=== PATIENT | female | born 1980 | race Caucasian/White ===

== ENCOUNTER 2017-10-22 07:51 | Emergency (ER) | payer OTHER ==
[~2017-10-22] VITALS: Ht 170.2 cm; Wt 84.9 kg
[~2017-10-22 07:51] MED LIST: DILA8TAB4 IV
[2017-10-22 07:55] VITALS: BP 135/85; PULSE 82; RESP 16; TEMP 98.7; O2SAT 100
[2017-10-22] MEDS ORDERED: SULFAMETHOXAZOLE-TRIMETHOPRIM DS 800-160 MG TAB PO ONE (08:30)
[2017-10-22] MEDS ORDERED: BACT800T5 PO (08:37)
--- NOTE | 2017-10-22 08:37 | PD ---
HPI Chief Complaint: Skin Problem Time Seen by Provider: 08:11 Travel History International Travel<30 days: No Contact w/Intl Traveler<30days: No Traveled to known affect area: No History of Present Illness HPI This 36-year-old female is complaining of an infection on her left leg. She has noted an area of swelling and tenderness over the lower leg. She admits to IV drug use but does not recall injecting at this particular site. She has also been working in the garden. PFSH Past Medical History Anxiety: Yes Depression: No Heart Rhythm Problems: No Cancer: No Cardiovascular Problems: No High Cholesterol: No Chest Pain: No Congestive Heart Failure: No Cerebrovascular Accident: No Diminished Hearing: No Endocrine: No Genitourinary: No Headaches: Yes Hypertension: No Immune Disorder: No Musculoskeletal: Yes (CHRONIC BACK PAIN) Neurologic: No Psychiatric: Yes Reproductive: No Respiratory: No Migraines: Yes Influenza Vaccination: No ?: Not LMP: TUBAL : 7 Para: 5 Miscarriage: 2 : 0 Tubal Ligation: Yes Past Surgical History Abdominal Surgery: No Cardiac Surgery: No Section: Yes (2009,2007 and 2005) Cholecystectomy: Yes Ear Surgery: No Endocrine Surgery: No Eye Surgery: No Genitourinary Surgery: No Gynecologic Surgery: Yes Oral Surgery: No Thoracic Surgery: No Social History Alcohol Use: Yes (on occasion) Tobacco Use: Yes ( MUCH I CAN) Substance Use: Yes (ALCOHOL, OPIATES, BENZOS, COCAINE, MARIJUANA) Allergies-Medications (Allergen,Severity, Reaction): Coded Allergies: vancomycin (Unverified Adverse Reaction, Intermediate, 10/22/17) burning throat/itching Reported Meds & Prescriptions Reported Meds & Active Scripts Active Reported Dilaudid 8 mg (Hydromorphone HCl) 8 Mg Tab 8 Mg IV DAILY Review of Systems General / Constitutional: No: Fever, Chills Respiratory: No: Cough Gastrointestinal: No: Vomiting, Diarrhea Genitourinary: No: Urgency, Frequency Skin: Positive Rash, Positive Lumps Psychiatric: Positive: Substance Abuse Endocrine: No: Heat Intolerance, Cold Intolerance Hematologic/Lymphatic: No: Easy Bruising Physical Exam Narrative GENERAL: [-] SKIN: Focused skin assessment warm/dry. HEAD: Atraumatic. Normocephalic. EYES: Pupils equal and round. No scleral icterus. No injection or drainage. ENT: No nasal bleeding or discharge. Mucous membranes pink and moist. NECK: Trachea midline. No JVD. CARDIOVASCULAR: Regular rate and rhythm. No murmur appreciated. RESPIRATORY: No accessory muscle use. Clear to auscultation. Breath sounds equal bilaterally. GASTROINTESTINAL: Abdomen soft, non-tender, nondistended. Hepatic and splenic margins not palpable. MUSCULOSKELETAL: No obvious deformities. No clubbing. No cyanosis. No edema. There is a pustular lesion about a centimeter in diameter overlying the midportion of the lower leg on the left side. NEUROLOGICAL: Awake and alert. No obvious cranial nerve deficits. Motor grossly within normal limits. Normal speech. PSYCHIATRIC: Appropriate mood and affect; insight and judgment normal. Data Data Last Documented VS Vital Signs Date Time Temp Pulse Resp B/P (MAP) Pulse Ox O2 Delivery O2 Flow Rate FiO2 10/22/17 07:55 98.7 82 16 135/85 (102) 100 Orders Orders Sulfamet-Trimeth Ds 800-160 Mg (Bactrim (10/22/17 08:30) Wound Culture And Gram Stain (10/22/17 08:32) Ibuprofen (Motrin) (10/22/17 08:45) MDM Medical Decision Making Medical Screen Exam Complete: Yes Emergency Medical Condition: Yes Medical Record Reviewed: Yes Differential Diagnosis Differential includes abscess, cellulitis Narrative Course I indeed confirms that this is an abscess. There is some surrounding erythema and she will be treated with Bactrim. Procedures Procedure Narrative Verbal consent was obtained. The pustular area was anesthetized with 1% lidocaine with adrenaline. The area was incised and a moderate amount of material was obtained. Culture has been sent. The area was packed with quarter inch Xeroform gauze. Patient tolerated the procedure well Diagnosis Primary Impression: Abscess of leg Additional Instructions: Remove packing in 2 days, return if fever increased swelling Scripts Sulfamethoxazole-Trimethoprim (Bactrim DS) 800-160 Mg Tab 1 TAB PO BID for Infection for 7 Days, #14 TAB 0 Refills Prov: Julian Britton MD 10/22/17 Disposition: 01 DISCHARGE HOME Condition: Stable Julian Britton MD Oct 22, 2017 08:37
[2017-10-22] MEDS ORDERED: IBUPROFEN 600 MG TAB PO ONE (08:45)
== END 2017-10-22 08:48 | disposition home or self-care (01) ==
LOC: PHED 07:51
DX: L02.416 Cutaneous abscess of left lower limb (principal); B95.62 Methicillin resistant Staphylococcus aureus infection as the cause of diseases classified elsewhere; F41.9 Anxiety disorder, unspecified; F17.200 Nicotine dependence, unspecified, uncomplicated; Z88.1 Allergy status to other antibiotic agents; Z79.899 Other long term (current) drug therapy
CPT/HCPCS: 10061; 86403; 87070; 87186

== ENCOUNTER 2017-11-18 23:34 | Emergency (ER) | payer OTHER ==
[~2017-11-18] VITALS: Ht 170.2 cm; Wt 81.0 kg
[~2017-11-18 23:34] MED LIST changes: +BACT800T5 PO; -DILA8TAB4 IV
[2017-11-18 23:44] VITALS: BP 127/76; PULSE 102; RESP 16; TEMP 99.6; O2SAT 97
[2017-11-19] MEDS ORDERED: SULFAMETHOXAZOLE-TRIMETHOPRIM DS 800-160 MG TAB PO ONE (01:30)
[2017-11-19] MEDS ORDERED: LIDOCAINE-PRILOCAIN 2.5% CREAM 5 GM TUBE TOPICAL ONE (01:30)
[2017-11-19] MEDS ORDERED: LIDOCAINE HCL 1% 20 ML VIAL INFIL ONE (01:30)
--- NOTE | 2017-11-19 02:32 | PD ---
HPI . Skin problem Chief Complaint: Skin Problem Time Seen by Provider: 01:12 Travel History International Travel<30 days: No Contact w/Intl Traveler<30days: No Traveled to known affect area: No History of Present Illness HPI 37-year-old female IV drug abuser with right anterior pretibial surface abscess and left thigh anterior probable infection. Patient has had multiple prior abscesses. Denies fever chills sweats. PFSH Past Medical History Narrative Medical Past medical history reviewed Anxiety: Yes Depression: No Heart Rhythm Problems: No Cancer: No Cardiovascular Problems: No High Cholesterol: No Chest Pain: No Congestive Heart Failure: No Cerebrovascular Accident: No Diminished Hearing: No Endocrine: Yes (HEP C) Genitourinary: No Headaches: Yes Hypertension: No Immune Disorder: No Medical other: Yes (HEP C) Musculoskeletal: Yes (CHRONIC BACK PAIN) Neurologic: No Psychiatric: Yes Reproductive: No Respiratory: No Migraines: Yes Influenza Vaccination: No ?: Not : 7 Para: 5 Miscarriage: 2 : 0 Tubal Ligation: Yes Past Surgical History Abdominal Surgery: No Cardiac Surgery: No Section: Yes (2009,2007 and 2005) Cholecystectomy: Yes (2016) Ear Surgery: No Endocrine Surgery: No Eye Surgery: No Genitourinary Surgery: No Gynecologic Surgery: Yes Oral Surgery: No Thoracic Surgery: No Social History Alcohol Use: Yes (on occasion) Tobacco Use: Yes ( MUCH I CAN 1 PCK/DAY) Substance Use: Yes (ALCOHOL, OPIATES, BENZOS, COCAINE, MARIJUANA, DILAUDID IV) Allergies-Medications (Allergen,Severity, Reaction): Coded Allergies: vancomycin (Unverified Adverse Reaction, Intermediate, 11/18/17) burning throat/itching Reported Meds & Prescriptions Reported Meds & Active Scripts Active Narrative Medication Allergies and medications reviewed Review of Systems Except as stated in HPI: all other systems reviewed are Neg General / Constitutional: No: Fever Eyes: No: Visual changes HENT: No: Headaches Cardiovascular: No: Chest Pain or Discomfort Respiratory: No: Shortness of Breath Gastrointestinal: No: Abdominal Pain Genitourinary: No: Dysuria Musculoskeletal: No: Pain Skin: Positive Rash Neurologic: No: Weakness Psychiatric: No: Depression Endocrine: No: Polydipsia Hematologic/Lymphatic: No: Easy Bruising Physical Exam Narrative GENERAL: Awake alert oriented 3 no acute distress. Patient eliciting possible toxidrome for drug intoxication but otherwise advocating well for herself. SKIN: Warm and dry. Color is normal no diaphoresis cyanosis or pallor HEAD: Atraumatic. Normocephalic. EYES: Pupils equal and round. No scleral icterus. No injection or drainage. ENT: No nasal bleeding or discharge. Mucous membranes pink and moist. NECK: Trachea midline. No JVD. CARDIOVASCULAR: Regular rate and rhythm. RESPIRATORY: No accessory muscle use. Clear to auscultation. Breath sounds equal bilaterally. GASTROINTESTINAL: Abdomen soft, non-tender, nondistended. Hepatic and splenic margins not palpable. MUSCULOSKELETAL: Right pretibial surface 2 cm round fluctuant area consistent with probable abscess with surrounding erythema. Left anterior thighs area of erythema without significant fluctuance consistent with early cellulitis.. NEUROLOGICAL: Awake and alert. No obvious focal deficits PSYCHIATRIC: Appropriate mood and affect; advocating well for herself Data Data Last Documented VS Vital Signs Date Time Temp Pulse Resp B/P (MAP) Pulse Ox O2 Delivery O2 Flow Rate FiO2 11/18/17 23:44 99.6 102 16 127/76 (93) 97 Orders Orders Sulfamet-Trimeth Ds 800-160 Mg (Bactrim (11/19/17 01:30) Lidocaine-Prilocain 2.5% Cream (Emla Cre (11/19/17 01:30) Lidocaine 1% Inj (Xylocaine 1% Inj) (11/19/17 01:30) MDM Medical Decision Making Medical Screen Exam Complete: Yes Emergency Medical Condition: Yes Medical Record Reviewed: Yes Differential Diagnosis Cellulitis, abscess Narrative Course EMLA cream applied to patient's right pretibial surface probable abscess in preparation for I&D. Patient eloped shortly after prior to incision and drainage procedure. Diagnosis Primary Impression: Abscess Disposition: LEFT WITHOUT BEING SEEN Condition: Mike Posey MD Nov 19, 2017 02:32
== END 2017-11-19 02:57 | disposition left against medical advice (07) ==
LOC: NEPE 23:34
DX: L02.415 Cutaneous abscess of right lower limb (principal); F41.9 Anxiety disorder, unspecified; F17.200 Nicotine dependence, unspecified, uncomplicated; Z86.19 Personal history of other infectious and parasitic diseases; Z88.1 Allergy status to other antibiotic agents; Z53.29 Procedure and treatment not carried out because of patient's decision for other reasons
CPT/HCPCS: 99281

== ENCOUNTER 2018-10-08 10:42 | Observation (INO) ==
--- NOTE | 2018-10-08 11:39 | ED ---
HPI General Chief complaint: Extremity Injury, Lower Stated complaint: Leg Complaint Time Seen by Provider: 10/08/18 11:19 History of Present Illness HPI narrative: This patient presents with her daughter. She is a daily her injector of heroin and Dilaudid into her legs. She complains of chest pain which started last night. She describes it as a central sternal heaviness and tightness. Was present this morning as well. It is not exertional. She also complains of numerous heaped up bruised painful lesions in both lower legs where she injects. She does not a history of endocarditis. She has subjective fever but has not taken any temperatures. She is a cigarette smoker. Severity is moderate. No alleviating factors. Symptoms exacerbated by IV drug use. Related Data Previous Rx's Medication Instructions Recorded sulfamethoxazole-trimethoprim 1 tab PO Q12H #20 tab 10/08/18 [Bactrim DS] Allergies Allergy/AdvReac Type Severity Reaction Status Date / Time vancomycin AdvReac Intermediate Itching Verified 10/08/18 13:14 Review of Systems ROS: all other systems reviewed are negative PMFSH Medical History Medical History Hepatitis C (Acute) IVDU (intravenous drug user) (Acute) Irritable bowel syndrome (Acute) Migraines (Acute) Skin lesion due to intravenous drug abuse (Acute) Tobacco user (Acute) Surgical History Surgical History History of section (Acute) Hx of cholecystectomy (Acute) Hx of tubal ligation (Acute) Social History Social History Substance History: Active Abuse Second Hand Smoke Exposure: No Smoking Status: Current every day smoker Tobacco Type: Cigarettes Packs Per Day: 1 Cigarettes Per Day: 20.0 Years Smoked: 20 Pack-Years: 20.00 How Often Do You Have a Drink Containing Alcohol: 2 to 4 times a month Hx Recent Travel: No Recent Travel in [facility] within the Last 8 Weeks: No Recent Out of Country Travel within the Last 8 Weeks: No Exam Narrative Exam Narrative: GENERAL: Well-nourished, well-developed patient with chest tightness . SKIN: Focused skin assessment reveals no rash but numerous bruised heaped up nodules in both lower extremities between ankle and knee. There is no fluctuance or actual drainage. Skin is Warm and dry. HEAD: Atraumatic. Normocephalic. EYES: Pupils equal and round. No scleral icterus. No injection or drainage. ENT: No nasal bleeding or discharge. Mucous membranes pink and moist. NECK: Trachea midline. No JVD. CARDIOVASCULAR: Regular rate and rhythm. No murmur appreciated. RESPIRATORY: No accessory muscle use. Clear to auscultation. Breath sounds equal bilaterally. GASTROINTESTINAL: Abdomen soft, non-tender, nondistended. Hepatic and splenic margins not palpable. MUSCULOSKELETAL: No obvious deformities. No clubbing. No cyanosis. No edema. NEUROLOGICAL: Awake and alert. No obvious cranial nerve deficits. Motor grossly within normal limits. Normal speech. PSYCHIATRIC: Appropriate mood and affect; insight and judgment poor . Course Initial Documented Vital Signs Temperature 98.0 F 10/08/18 11:03 Pulse Rate 98 H 10/08/18 11:03 Respiratory Rate 14 10/08/18 11:03 Blood Pressure 124/67 10/08/18 11:03 Pulse Oximetry 100 10/08/18 11:03 Last Documented Vital Signs Temperature 98.2 F 10/08/18 16:33 Pulse Rate 81 10/08/18 17:28 Respiratory Rate 18 10/08/18 16:33 Blood Pressure 112/67 10/08/18 16:33 Pulse Oximetry 98 10/08/18 16:33 Medical Decision Making MDM Narrative Medical decision making narrative: This is a 37-year-old female complaining of chest pain and tightness also complicated by IV drug abuse complications. She reports subjective fever. There will be concern for bacteremia or endocarditis. I have ordered 2 blood cultures. Chest pain workup is ordered. She has risk factors for CAD as well although she is on the young side for that. Patient will require admission for evaluation of her chest pain as well as ruling out endocarditis. The patient was seen as part of the RMA process by my attending physician, Dr. Carrillo. IMimi [facility], have reviewed Dr. Torres note, recommended plan of care and disposition. CBC unremarkable. Coags unremarkable. Creatinine 1.22, otherwise CMP essentially unremarkable. Troponin less than 0.02. Chest x-ray with no acute cardiopulmonary disease. Patient admitted to the chest pain center for further treatment and evaluation. Chest pain orders entered. Medical Screen Exam Complete: Yes Emergency Medical Condition: Yes Differential Diagnosis Differential Diagnosis: Drug abuse, chest pain, endocarditis, VA, ACS Lab Data Result diagrams: 10/08/18 12:15 10/08/18 12:15 Lab Results 10/08/18 10/08/18 10/08/18 Range/Units 12:15 12:15 12:15 WBC 6.6 (4.0-11.0) th/mm3 RBC 5.27 (4.00-5.30) mil/mm3 Hgb 14.0 (11.6-15.3) gm/dL Hct 42.0 (35.0-46.0) % MCV 79.7 L (80.0-100.0) fL MCH 26.6 L (27.0-34.0) pg MCHC 33.4 (32.0-36.0) % RDW 16.9 (11.6-17.2) % Plt Count 272 (150-450) th/mm3 MPV 8.3 (7.0-11.0) fL Neut % (Auto) 69.7 (16.0-70.0) % Lymph % (Auto) 21.9 (9.0-44.0) % Grundy % (Auto) 7.4 (0.0-8.0) % Eos % (Auto) 0.3 (0.0-4.0) % Baso % (Auto) 0.7 (0.0-2.0) % Neut # (Auto) 4.6 (1.8-7.7) th/mm3 Lymph # (Auto) 1.4 (1.0-4.8) th/mm3 Grundy # (Auto) 0.5 (0.0-0.9) th/mm3 Eos # (Auto) 0.0 (0.0-0.4) th/mm3 Baso # (Auto) 0.0 (0.0-0.2) th/mm3 WBC Differential . Differential Comment Auto diff final PT 11.2 (9.8-11.6) sec INR 1.1 Ratio APTT 30.8 (23.4-31.7) sec Sodium 137 (136-145) meq/L Potassium 4.5 (3.5-5.1) meq/L Chloride 105 (98-107) meq/L Carbon Dioxide 25.5 (21.0-32.0) meq/L Anion Gap 7 (5-15) meq/L BUN 12 (7-18) mg/dL Creatinine 1.22 H (0.50-1.00) mg/dL Estimated GFR 50 L (>89) mL/min Random Glucose 94 (74-106) mg/dL Calcium 8.9 (8.5-10.1) mg/dL Total Bilirubin 0.8 (0.2-1.0) mg/dL AST 33 (15-37) U/L ALT 28 (10-53) U/L Alkaline Phosphatase 159 H (45-117) U/L Total Creatine Kinase 57 (26-192) U/L Troponin I Less than 0.02 L (0.02-0.05) ng/mL Total Protein 8.9 H (6.4-8.2) g/dL Albumin 4.2 (3.4-5.0) g/dL 10/08/18 Range/Units 17:07 WBC (4.0-11.0) th/mm3 RBC (4.00-5.30) mil/mm3 Hgb (11.6-15.3) gm/dL Hct (35.0-46.0) % MCV (80.0-100.0) fL MCH (27.0-34.0) pg MCHC (32.0-36.0) % RDW (11.6-17.2) % Plt Count (150-450) th/mm3 MPV (7.0-11.0) fL Neut % (Auto) (16.0-70.0) % Lymph % (Auto) (9.0-44.0) % Grundy % (Auto) (0.0-8.0) % Eos % (Auto) (0.0-4.0) % Baso % (Auto) (0.0-2.0) % Neut # (Auto) (1.8-7.7) th/mm3 Lymph # (Auto) (1.0-4.8) th/mm3 Grundy # (Auto) (0.0-0.9) th/mm3 Eos # (Auto) (0.0-0.4) th/mm3 Baso # (Auto) (0.0-0.2) th/mm3 WBC Differential Differential Comment PT (9.8-11.6) sec INR Ratio APTT (23.4-31.7) sec Sodium (136-145) meq/L Potassium (3.5-5.1) meq/L Chloride (98-107) meq/L Carbon Dioxide (21.0-32.0) meq/L Anion Gap (5-15) meq/L BUN (7-18) mg/dL Creatinine (0.50-1.00) mg/dL Estimated GFR (>89) mL/min Random Glucose (74-106) mg/dL Calcium (8.5-10.1) mg/dL Total Bilirubin (0.2-1.0) mg/dL AST (15-37) U/L ALT (10-53) U/L Alkaline Phosphatase (45-117) U/L Total Creatine Kinase 47 (26-192) U/L Troponin I Less than 0.02 L (0.02-0.05) ng/mL Total Protein (6.4-8.2) g/dL Albumin (3.4-5.0) g/dL Imaging Data Radiologist's impression: Chest X-Ray 10/08/18 11:34 CONCLUSION: 1. No acute cardiopulmonary disease. Discharge Plan Discharge Disposition Patient Disposition: ED Admit(ED Internal Use Only) Discharge Condition Condition: Stable Discharge Order Discharge Orders: AMA Discharge (Routine); Ordered 10/08/18 Ordered By: Betina Martel ED Use Only Admit Order (Routine); Ordered 10/08/18 Ordered By: Mimi Chou Discharge Details Diagnosis: Chest pain, Drug abuse, IV Physicians Team ED Provider: Francis Carrillo ED Midlevel Provider: Mimi Chou Primary Care Provider: Primary Care Sarah David Attending Provider: Araseli Land ED Status: Left Department Discharge Information Discharge Date/Time: 10/08/18 15:00
[2018-10-08 12:47] LABS: Baso % (Auto) 0.7 % (0.0-2.0); Eos % (Auto) 0.3 % (0.0-4.0); Lymph # (Auto) 1.4 th/mm3 (1.0-4.8); Lymph % (Auto) 21.9 % (9.0-44.0); Mean Corpuscular HGB Conc 33.4 % (32.0-36.0); Mean Corpuscular Hemoglobin 26.6 pg (27.0-34.0); Mean Corpuscular Volume 79.7 fL (80.0-100.0); Mean Platelet Volume 8.3 fL (7.0-11.0); Mono # (Auto) 0.5 th/mm3 (0.0-0.9); Mono % (Auto) 7.4 % (0.0-8.0); Neut # (Auto) 4.6 th/mm3 (1.8-7.7); Neut % (Auto) 69.7 % (16.0-70.0); Platelet Count 272 th/mm3 (150-450); Red Blood Count 5.27 mil/mm3 (4.00-5.30); Red Cell Distribution Width 16.9 % (11.6-17.2); White Blood Count 6.6 th/mm3 (4.0-11.0)
[2018-10-08 12:56] LABS: Activated Partial Thrombo Time 30.8 sec (23.4-31.7); INR 1.1 Ratio; Prothrombin Time 11.2 sec (9.8-11.6)
[2018-10-08 13:03] LABS: Alanine Aminotransferase 28 U/L (10-53); Albumin 4.2 g/dL (3.4-5.0); Anion Gap 7 meq/L (5-15); Aspartate Aminotransferase 33 U/L (15-37); Blood Urea Nitrogen 12 mg/dL (7-18); Calcium 8.9 mg/dL (8.5-10.1); Carbon Dioxide 25.5 meq/L (21.0-32.0); Chloride 105 meq/L (98-107); Glomerular Filtration Rate 50 mL/min (>89); Glucose,Random 94 mg/dL (74-106); Potassium 4.5 meq/L (3.5-5.1); Sodium 137 meq/L (136-145)
[2018-10-08 13:07] LABS: Alkaline Phosphatase 159 U/L (45-117); Total Protein 8.9 g/dL (6.4-8.2)
[2018-10-08 13:08] LABS: Creatine Kinase 57 U/L (26-192)
--- NOTE | 2018-10-08 13:26 | XR ---
EXAM DATE: 10/08/2018 1:18 PM EST AGE/SEX: 37 years / Female INDICATIONS: Chest pain. CLINICAL DATA: This is the patient's initial encounter. Patient reports that signs and symptoms have been present for 1 day and indicates a pain score of 5/10. MEDICAL/SURGICAL HISTORY: None. section. [place] [facility] [place]. . FINDINGS: No significant focal pleural or parenchymal opacities. The cardiomediastinal contours are unremarkabl e. Osseous structures are intact. CONCLUSION: 1. No acute cardiopulmonary disease. Electronically signed by: Konrad Alvarez MD Board Certified Radiologist 10/08/2018 1:25 PM EST
--- NOTE | 2018-10-08 15:57 | P.HPCA ---
History of Present Illness Primary Care Physician: No Primary Care Physician Chief Complaint: Chest pain History of Present Illness: 37 year old female with 10 year history of IVDA presents to ER for further evaluation of chest pain and bilateral leg sores. Onset yesterday afternoon around 2-3pm. Location generalized chest. Characterized as tightness, with sharp radiating pains to mid back. First 30-40 minutes of discomfort reported to be severe. Duration constant, currently mild. Associated symptoms included nausea, "dry heaves, dyspnea, and diaphoresis. Precipitating factors related to emotional stress. No relieving factors. Hurts to touch area. Discomfort unchanged with cough or deep breathing. No recent fever or chills. Last used IV Dilaudid yesterday morning. In regards to bilateral leg lesions, reports using legs to shoot up. Noticed last few days both legs appear swollen to her, "more ugly," and have a generalized soreness. No particular lesions is she concerned about. Denies any warmth, redness, or drainage. States being an IVDU for 10 years and despite multiple attempts at drug rehab is unable to remain drug free. No history of endocarditis. Past cardiac testing None Social history No known hypertension, hyperlipidemia, or diabetes. Lifelong 1 pack/day smoker. IV Dilaudid use each morning, last used 10/07/18 a.m. Alcohol occasionally. Family history Noncontributory for early onset cardiovascular disease. - Diagnosis (1) Atypical chest pain (2) Tobacco use (3) IVDU (intravenous drug user) (4) Skin lesions, generalized Review of Systems All other systems reviewed negative except as stated in HPI [facility] - History History Provided By: Patient, Family Member - Medical History Medical History: Medical History (Last Updated 10/08/18 @ 16:21 by AJAY Guerrero) Hepatitis C IVDU (intravenous drug user) Irritable bowel syndrome Migraines Skin lesion due to intravenous drug abuse Tobacco user - Surgical History Surgical History: Surgical History (Last Updated 10/08/18 @ 16:21 by AJAY Guerrero) History of section Hx of cholecystectomy Hx of tubal ligation - Tobacco History Tobacco Use In Past 30 Days: Yes Smoking Status: Current every day smoker Tobacco Type: Cigarettes Packs Per Day: 1 Years Smoked: 20 - Alcohol History How Often Do You Have a Drink Containing Alcohol: 2 to 4 times a month - Substance Use History Substance History: Active Abuse - Substance Use Type Heroin Status: Active Route Used: Intravenously Last Used: 10/07/18 morning - Travel History History of Recent Travel: No Recent Travel in the [place] Within the Last 8 Weeks: No Recent Travel Out of the Country Within the Last 8 Weeks: No - Immunization History Tetanus Immunization: Unsure Medications and Allergies Active Medications: Active Medications Sodium Chloride (Ns Flush) 2 ml IV.FLUSH UNSCH PRN PRN Reason: FLUSH AFTER USING IV ACCESS Sodium Chloride (Ns Flush) 2 ml IV.FLUSH BID PORTER Sodium Chloride (Ns Flush) 2 ml IV.FLUSH PRN PRN PRN Reason: FLUSH AFTER USING IV ACCESS Allergies Allergy/AdvReac Type Severity Reaction Status Date / Time vancomycin AdvReac Intermediate Itching Verified 10/08/18 13:14 Exam Vital signs: Vital Signs 10/08/18 11:03 10/08/18 11:07 10/08/18 13:00 Temperature 98.0 F Pulse Rate 98 H 76 92 H Respiratory Rate 14 20 15 Blood Pressure 124/67 111/69 Pulse Oximetry 100 100 98 10/08/18 13:42 Temperature Pulse Rate Respiratory Rate Blood Pressure Pulse Oximetry 99 Intake & Output 10/07/18 10/08/18 10/08/18 18:59 06:59 18:59 Weight 79.379 kg Narrative: GENERAL: Alert WN, WD, NAD, pleasant, female who appears older than stated age HEAD: NC, AT EYES: Sclera clear, conjunctiva without injection, pupils equal and round ENT: Mucous membranes pink and moist, upper and lower plates NECK: Supple, no masses, trachea midline CV: RRR, without murmur, rub, gallop. Chest wall slightly tender to palpation. RESP: Diminished lungs throughout bilateral, right upper lobe rhonchi cleared after coughing, no crackles or wheezing. symmetrical chest rise, nonlabored, able to speak in full sentences ABD: Soft, NT, ND, no masses, positive bowel tones EXT: Pulses +2x4, bilateral lower extremities without pitting edema MS: Normal tone x4 extremities, appears to have involuntary, spastic movement of extremities at times, no obvious deformities, full range of motion NEURO: Motor strength 5/5 PSYCH: A+O x3, pleasant affect, appropriate speech, mood, insight and judgment SKIN: Bilateral calves numerous skins lesions and nodules in multiple stages of healing, no areas opens, no drainage or warmth of any lesions. Normal turgor, no rashes, decreased hair distribution bilateral legs Results 10/08/18 12:15 10/08/18 12:15 Cardiac Enzymes 10/08/18 Range/Units 12:15 AST 33 (15-37) U/L Troponin I Less than 0.02 L (0.02-0.05) ng/mL Coagulation 10/08/18 Range/Units 12:15 PT 11.2 (9.8-11.6) sec APTT 30.8 (23.4-31.7) sec CBC 10/08/18 Range/Units 12:15 WBC 6.6 (4.0-11.0) th/mm3 RBC 5.27 (4.00-5.30) mil/mm3 Hgb 14.0 (11.6-15.3) gm/dL Hct 42.0 (35.0-46.0) % Plt Count 272 (150-450) th/mm3 Neut # (Auto) 4.6 (1.8-7.7) th/mm3 Lymph # (Auto) 1.4 (1.0-4.8) th/mm3 [place] # (Auto) 0.5 (0.0-0.9) th/mm3 Eos # (Auto) 0.0 (0.0-0.4) th/mm3 Baso # (Auto) 0.0 (0.0-0.2) th/mm3 Comprehensive Metabolic Panel 10/08/18 Range/Units 12:15 Sodium 137 (136-145) meq/L Potassium 4.5 (3.5-5.1) meq/L Chloride 105 (98-107) meq/L Carbon Dioxide 25.5 (21.0-32.0) meq/L BUN 12 (7-18) mg/dL Creatinine 1.22 H (0.50-1.00) mg/dL Calcium 8.9 (8.5-10.1) mg/dL AST 33 (15-37) U/L ALT 28 (10-53) U/L Alkaline Phosphatase 159 H (45-117) U/L Total Protein 8.9 H (6.4-8.2) g/dL Albumin 4.2 (3.4-5.0) g/dL Intake and Output 02/14/19 02/14/19 02/14/19 06:59 14:59 22:59 Other: Weight 79.379 kg Patient Weight 10/09/18 06:59 Weight 79.379 kg - Imaging and Cardiology Imaging: Impressions Chest X-Ray 10/08/18 11:34 CONCLUSION: 1. No acute cardiopulmonary disease. EKG interpretations - EKG EKG results cardiology: sinus rhythm, normal axis, normal QRS, normal ST/T Caprini VTE Risk Assessment Caprini VTE Risk Assessment: No/Low Risk (score <= 1) Caprini Risk Assessment Model: Point Value = 1 Point Value = 2 Point Value = 3 Point Value = 5 Age 41-60 Minor surgery BMI > 25 kg/m2 Swollen legs Varicose veins or History of unexplained or recurrent spontaneous Oral contraceptives or hormone replacement Sepsis (< 1 month) Serious lung disease, including pneumonia (< 1 month) Abnormal pulmonary function Acute myocardial infarction Congestive heart failure (< 1 month) History of inflammatory bowel disease Medical patient at bed rest Age 61-74 Arthroscopic surgery Major open surgery (> 45 min) Laparoscopic surgery (> 45 min) Malignancy Confined to bed (> 72 hours) Immobilizing plaster cast Central venous access Age >= 75 History of VTE Family history of VTE Factor V Leiden Prothrombin [id number] Lupus anticoagulant Anticardiolipin antibodies Elevated serum homocysteine Heparin-induced thrombocytopenia Other congenital or acquired thrombophilia Stroke (< 1 month) Elective arthroplasty Hip, pelvis, or leg fracture Acute spinal cord injury (< 1 month) Prophylaxis Regimen: Total Risk Factor Score Risk Level Prophylaxis Regimen 0-1 Low Early ambulation 2 Moderate Order ONE of the following: *Sequential Compression Device (SCD) *Heparin 5000 units SQ BID 3-4 Higher Order ONE of the following medications: *Heparin 5000 units SQ TID *Enoxaparin/Lovenox 40 mg SQ daily (WT < 150 kg, CrCl > 30 mL/min) *Enoxaparin/Lovenox 30 mg SQ daily (WT < 150 kg, CrCl > 10-29 mL/min) *Enoxaparin/Lovenox 30 mg SQ BID (WT < 150 kg, CrCl > 30 mL/min) AND/OR *Sequential Compression Device (SCD) 5 or more Highest Order ONE of the following medications: *Heparin 5000 units SQ TID (Preferred with Epidurals) *Enoxaparin/Lovenox 40 mg SQ daily (WT < 150 kg, CrCl > 30 mL/min) *Enoxaparin/Lovenox 30 mg SQ daily (WT < 150 kg, CrCl > 10-29 mL/min) *Enoxaparin/Lovenox 30 mg SQ BID (WT < 150 kg, CrCl > 30 mL/min) AND *Sequential Compression Device (SCD) Assessment and Plan - Assessment (1) Atypical chest pain Code(s): R07.89 - Other chest pain Status: Acute Plan: Admitted to chest pain center. Will be seen and evaluated by Dr. Araseli Land. Continue ACS protocol including 3 sets of EKGs and cardiac enzymes. Atypical cardiac presentation as duration greater than 24 hours. Discussed possible exercise cardiac testing later this afternoon and if testing unremarkable plans would be to discharge home. Patient agreeable to plan of care. (2) Tobacco use Code(s): Z72.0 - Tobacco use Status: Chronic Plan: Strongly encouraged and stressed importance of tobacco cessation. Instructed to quit smoking. Tobacco Free [place] program information will be placed in discharge instructions. (3) IVDU (intravenous drug user) Code(s): F19.90 - Other psychoactive substance use, unspecified, uncomplicated Status: Chronic Plan: Encouraged her continued efforts of stopping intravenous drug use. Reinforced risks of IV drug use. (4) Skin lesions, generalized Code(s): L98.9 - Disorder of the skin and subcutaneous tissue, unspecified Status: Chronic Plan: Bactrim DS 1 tablet 12h x10 days upon discharge
[2018-10-08 18:20] LABS: Creatine Kinase 47 U/L (26-192)
--- NOTE | 2018-10-09 07:25 | ECG ---
Date Performed: 10/08/2018 Time Performed: 15:46:01 PTAGE: 37 years EKG: Sinus rhythm POSSIBLE LEFT ATRIAL ENLARGEMENT BORDERLINE ECG PREVIOUS TRACING : 10/08/2018 12.15 DOCTOR: Araseli Land Interpretating Date/Time 10/09/2018 07:24:28
--- NOTE | 2018-10-09 07:29 | TR ---
Date Performed: 10/08/2018 Time Performed: 17:51:21 DOCTOR: Araseli Land DRUG LIST: CLINICAL HISTORY: REASON FOR TEST: Chest pain REASON FOR ENDING: OBSERVATION: CONCLUSION: Jordi protocol completed. Stopped sec to reaching target heart rate and leg fatigue. Maximum VH=591 Max HR Achieved=89.0% Maximum WW=692/80 Total Exercise Time=8:04. No reprod chest noemi n. No ectopy. J point depression with horizontal st segments. Good exercise tolerance. Recovery quick and unremarkable. COMMENTS: ETT suggests ischemia Note- Pt left AMA
--- NOTE | 2018-10-09 14:47 | ECG ---
Date Performed: 10/08/2018 Time Performed: 12:15:55 PTAGE: 37 years EKG: Sinus rhythm LEFT ATRIAL ENLARGEMENT ABNORMAL ECG Since the PREVIOUS TRACING , no significant change noted PREVIOUS TRACIN03/29/2016 19.48 DOCTOR: Huma Crews Interpretating Date/Time 10/09/2018 14:40:44
== END 2018-10-08 18:44 | disposition left against medical advice (07) ==
LOC: NEPD 10:42 → NEDA 10:42 → NEPGCP 15:00
PROVIDERS: ADMIT Internal Medicine Interventional Cardiology; ATTEND Internal Medicine Interventional Cardiology
DX: F19.10 Other psychoactive substance abuse, uncomplicated; K58.9 Irritable bowel syndrome, unspecified; B19.20 Unspecified viral hepatitis C without hepatic coma; L98.9 Disorder of the skin and subcutaneous tissue, unspecified; Z90.49 Acquired absence of other specified parts of digestive tract; G43.909 Migraine, unspecified, not intractable, without status migrainosus; Z98.891 History of uterine scar from previous surgery; F17.210 Nicotine dependence, cigarettes, uncomplicated; R07.89 Other chest pain; Z98.51 Tubal ligation status
CPT/HCPCS: 71010; 71045; 80053; 82550; 84484; 85025; 85610; 85730; 87040; 93005; 93017; 99285; G0378